=== PATIENT | female | born 1955 | race Caucasian/White ===

== ENCOUNTER 2017-12-08 08:39 | Day surgery (SDC) | payer MEDICAID ==
[~2017-12-08 08:39] MED LIST: Midazolam 1 MG/ML 2 ML SDV ONE; Propofol 200 MG/20 ML SDV ONE; fentaNYL 100 MCG/2 ML SDV ONE
[2017-12-08] MEDS ORDERED: Dextrose 5%-Lactated Ringers 1,000 ML IV SCH (09:30)
[2017-12-08] MEDS ORDERED: ceFAZolin 1 GM in Premix Bag 1 BAG IV ONE (10:00)
[2017-12-08] MEDS ORDERED: Scopolamine 1.5 MG Transdermal Patch TOP ONE (10:11)
[2017-12-08] MEDS ORDERED: Bupivacaine 0.5% 50 ML MDV ONE (10:36)
[2017-12-08] MEDS ORDERED: Lidocaine 1% with EPINEPHrine 1:100,000 50 ML MDV ONE (10:37)
[2017-12-08 13:39] VITALS: BP 139/65
--- NOTE | 2017-12-12 10:07 | OR ---
DATE OF PROCEDURE: 12/08/2017 PREOPERATIVE DIAGNOSIS: Soft tissue mass of right shoulder. POSTOPERATIVE DIAGNOSIS: Recurrent subfascial lipoma, right shoulder. PROCEDURE PERFORMED: Excision of recurrent subfascial lipoma, right shoulder (61973). ANESTHESIA: Local plus IV sedation. ELEVATOR ADJUSTER: FOUZIA Souza INDICATION FOR PROCEDURE: This is a 62-year-old presenting with recurrent soft tissue mass that was previously incised from the superior aspect of the right shoulder, which clinically was most likely a lipoma. Plan is to proceed with excision. Potential risks including bleeding, infection, recurrence of the process over time were reviewed and the patient wishes us to proceed. DETAILS OF PROCEDURE: The patient was taken to the operating room and placed in supine position. The right shoulder area was prepped and draped while the patient received IV sedation. The area was anesthetized with 1% lidocaine mixed with Marcaine and previous incision was then reused and extended slightly anteriorly and posteriorly. This dissection was continued down through the skin and subcutaneous tissue. The mass appeared to be underneath the investing fascia. This was divided allowing the lipoma to be dissected free in what appeared to be an intact manner. This was between the fascia and the underlying musculature, and upon removal of the lesion, it was measured at 3.1 cm. At that point, the area was inspected. No further problems were noted. Incisions were closed with some 4-0 Vicryl stitch deep and then a 5-0 Prolene skin stitch. Dressing was applied. The patient was taken to the recovery room in satisfactory condition. David Reed MD Job #: [id number]
== END 2017-12-08 14:08 | disposition home or self-care (01) ==
LOC: JP.SDS 08:39
PROVIDERS: ATTEND Surgery
DX: D17.21 Benign lipomatous neoplasm of skin and subcutaneous tissue of right arm (principal); J45.909 Unspecified asthma, uncomplicated; I10 Essential (primary) hypertension
CPT/HCPCS: 23076; 82962; A9270; J0690; J2250; J2704; J3010; J7042; 88304